=== PATIENT | female | born 1980 | race Caucasian/White ===

== ENCOUNTER → 2017-08-04 | Outpatient (CLI) | payer BC ==
[~2017-08-04] MED LIST: BCPILLS; CLXUNK
--- NOTE | 2017-08-04 16:04 | DIAGNOSTIC IMAGING REPORT ---
SOFT TISS HEAD/NECK-THYROID CLINICAL HISTORY: 37 years-old Female presenting with NECK PAIN,? ENLARGED THYROID. TECHNIQUE: Real-time grayscale and color Doppler ultrasound imaging of the thyroid and base of the neck was performed. COMPARISON: None. FINDINGS: Right lobe: Normal echogenicity and echotexture. The right lobe of the thyroid measures 4.5 x 1.5 x 1.5 cm. 2 anechoic foci with peripheral punctate hyperechogenicity with suggestion of ringdown artifact most suggestive of colloid cysts. One in the interpolar region measures 0.6 x 0.6 x 0.4 cm and the second at the lower pole measures 0.5 x 0.5 x 0.3 cm. No parenchymal hyperemia. Left lobe: Normal echogenicity and echotexture. The left lobe of the thyroid measures 4.4 x 1.7 x 1.6 cm. Well-circumscribed hyperemic wider than tall hypoechoic nodule at the lower pole measures 1.2 x 1.4 x 1.0 cm (intermediate suspicion pattern). No parenchymal hyperemia. Isthmus: The isthmus measures 4 mm in thickness. No nodules. IMPRESSION: 1. 1.4 cm hypoechoic nodule at the lower pole of the left lobe of the thyroid is intermediate in suspicion and per the [place] [employer] criteria, fine-needle aspiration is recommended. Electronically signed by: Malachi Betts M.D. 08/04/2017 4:03 PM Dictated Date/Time: 08/04/2017 4:00 PM
== END | disposition home or self-care (01) ==
LOC: C.ULTR 15:21
PROVIDERS: ATTEND Physician Assistant Medical
DX: M54.2 Cervicalgia (principal); E04.1 Nontoxic single thyroid nodule

== ENCOUNTER → 2017-08-12 | Outpatient (CLI) | payer BC ==
--- NOTE | 2017-08-12 13:07 | DIAGNOSTIC IMAGING REPORT ---
ULTRASOUND GUIDED FINE NEEDLE ASPIRATION OF LEFT LOBE THYROID NODULE CLINICAL HISTORY: Thyroid nodule. COMPARISON STUDY: Thyroid ultrasound August 04, 2017. PROCEDURE: Sonography revealed the 1.4 cm left lobe thyroid nodule which was targeted for fine-needle aspiration. The procedure, risks and benefits were discussed with the patient and informed written consent was obtained. The procedure was performed by Dr. Lozoya following a timeout. Skin was prepped and draped in sterile fashion and local anesthesia was achieved with 1% lidocaine. Under direct ultrasound guidance, 6 fine needle aspirations were performed, 5 utilizing a 25-gauge needle and one utilizing a 22-gauge needle. Preliminary pathology revealed hypocellularity. However, no additional sampling was performed given 6 passes. IMPRESSION: Ultrasound guided fine needle aspiration of 1.4 cm left lobe thyroid nodule. Electronically signed by: Kevan Lozoya M.D. 08/12/2017 1:06 PM Dictated Date/Time: 08/12/2017 1:02 PM
== END | disposition home or self-care (01) ==
LOC: C.ULTR 10:44
PROVIDERS: ATTEND Physician Assistant Medical
DX: E04.1 Nontoxic single thyroid nodule (principal)

== ENCOUNTER → 2017-08-19 | Outpatient (CLI) | payer BC ==
[2017-08-19 18:01] LABS: THYROID STIMULATING HORMONE 2.63 uIu/ml (0.300-4.500)
== END | disposition home or self-care (01) ==
LOC: C.LAB1850 16:24
PROVIDERS: ATTEND Physician Assistant Medical
DX: E04.1 Nontoxic single thyroid nodule (principal)